=== PATIENT | female | born 1960 | race Caucasian/White ===

== ENCOUNTER 2018-07-14 06:44 | Outpatient (CLI) | payer OTHER ==
[~2018-07-14] VITALS: Ht 165.1 cm; Wt 131.8 kg
--- NOTE | ~2018-07-14 | HEMODYNAMI ---
PATIENT:TAIWO MAHMOOD MEDICAL RECORD: [id number] : 56 LOCATION:[facility] ADMISSION DATE: 07/14/18 Generatedon:07/14/20189:48 Patient name: TAIWO MAHMOOD Patient #: [id number] SSN: : 1960 Date of study: 07/14/2018 Page: Of Hemodynamic Procedure Report Patient Data Patient Demographics Procedure consent was obtained First Name: TAIWO Gender: Female Last Name: ELA : 1960 Patient #: [id number] Age: 58 year(s) Race: Unknown Additional ID: [id number] Contact details [address]: [address] [place] [address] State: [place] City: [place] Zip code: [address] Past Medical History Allergies Allergen Reaction Date Comments Reported Penicillins 07/14/2018 Admission Admission Data Admission Date: 07/14/2018 Admission Time: 6:44 Height (in.): 65 BSA: 2.32 (m2) Height (cm.): 165.1 BMI: 48.42 (kg/m2) Weight (lbs.): 291 Weight (kg.): 132 Lab Results Lab Result Date: 07/14/2018 Lab Result Time: 0:00 Biochemistry Name Units Result Min Max BUN mg/dl 18 --(---*)-- 7 18 Creatinine mg/dl 0.8 --(-*--)-- 0.6 1.3 CBC Name Units Result Min Max Hemoglobin g/dl 12.7 -*(----)-- 13.5 17.5 Procedure Procedure Types Cath Procedure Diagnostic Procedure [facility] w/Coronaries Sedation Charges Moderate Sedation up to 15 minutes Procedure Description Procedure Date Procedure Date: 07/14/2018 Procedure Start Time: 9:36 Procedure End Time: 9:47 Procedure Staff Name Function Nelson Swenson RT Wrapping Machine Helper Leah Tam RT Monitor Becky Tripathi RT Scrub Turner Perez RN Nurse Holland Lauren MD Performing Physician Procedure Data Cath Procedure Fluoroscopy Diagnostic fluoroscopy Total fluoroscopy Time: 2.4 time: 2.4 min min Diagnostic fluoroscopy Total fluoroscopy dose: 757 dose: 757 mGy mGy Contrast Material Contrast Material Type Amount (ml) Isovue 300 64 Entry Location Entry Primary Successful Side Size Upsize Upsize Entry Closure Knight ccessful Closure Location (Fr) 1 (Fr) 2 (Fr) Remarks Device Remarks Radial Right 6 Fr Mechanical artery Short Compression Estimated blood loss: 5 ml Diagnostic catheters Device Type Used For End Catheter Placement DIAGNOSTIC Lee 110cm Procedure 5Fr catheter ([id number]) Procedure Complications No complications Procedure Medications Medication Administration Route Dosage 0.9% NaCl I.V. 100 ml/hr Oxygen etCO2 Nasal cannula 2 l/min Heparin Flush Bag added to field 2 bags (1000units/500ml NS) Lidocaine 2% added to field 20 Radial Cocktail added to field 1 syringe (Verapomil 2mg/Nitro 400mcg/Heparin 1500units) Versed I.V. 2 mg Fentanyl I.V. 100 mcg Versed I.V. 1 mg Versed I.V. 1 mg Radial Cocktail I.A. 1 syringe (Verapomil 2mg/Nitro 400mcg/Heparin 1500units) Hemodynamics Rest BSA: 2.32 (m2) HGB: 12.7 (g/dl) O2 Consumption: Estimated: 208.43 (ml/min) O2 Co nsumption indexed: Estimated:89.84 (ml/min/m) Heart Rate: 57 (bpm) Pressure Samples Time Site Value (mmHg) Purpose Heart Use Rate(bpm) 9:38 LV 120/12,12 Snapshot 103 Gradients Valve Time Site Site Mean SEP/DFP Peak To Heart Use 1 2 (mmHg) (sec/min) Peak Rate (mmHg) (bpm) Aortic 9:39 LV AO 111 Snapshots Pre Cath Intra NCS Post Cath Vital Signs Time Heart Resp SPO2 etCO2 NIBP (mmHg) Rhythm Pain Sedation Rate (ipm) (%) (mmHg) Status Level (bpm) 9:18:24 59 15 100 38 143/78(100) NSR 0 (11) 10(A) , No pain 9:22:40 59 12 100 41 129/73(94) NSR 0 (11) 10(A) , No pain 9:26:54 62 22 100 29.1 133/74(94) NSR 0 (11) 10(A) , No pain 9:32:03 58 11 100 11.2 133/78(108) NSR 0 (11) 10(A) , No pain 9:36:21 61 12 100 37.3 135/76(96) NSR 0 (11) 10(A) , No pain 9:40:41 76 12 95 36.5 125/73(99) NSR 0 (11) 9(A) , No pain 9:44:53 77 18 96 40.3 134/73(93) NSR 0 (11) 10(A) , No pain Medications Time Medication Route Dose Verified Delivered Reason Notes Effectiveness by by 9:17:26 0.9% NaCl I.V. 100 Turner Turner Per ml/hr Chris Perez physician RN RN 9:17:35 Oxygen etCO2 2 l/min Turner Turner Per Nasal Chris Perez physician cannula RN RN 9:17:49 Heparin Flush added 2 bags Turner Turner used for Bag to Chris Perez procedure (1000units/500ml RN RN NS) 9:18:04 Lidocaine 2% added 20ml Turner Turner for local to vial Lorigan Chris anesthetic field SANTIZO RN 9:18:14 Radial Cocktail added 1 Turner Turner used for (Verapomil to syringe Chris Perez procedure 2mg/Nitro field SANTIZO RN 400mcg/Heparin 1500units) 9:25:54 Versed I.V. 2 mg Turner Turner for sedation Chris Perez RN RN 9:26:03 Fentanyl I.V. 100 mcg Turner Turner for sedation Chris Perez RN RN 9:34:37 Versed I.V. 1 mg Turner Turner for sedation Chris Perez RN RN 9:36:09 Versed I.V. 1 mg Turner Turner for sedation Chris Perez RN RN 9:37:43 Radial Cocktail I.A. 1 Turenr Holland for (Verapomil syringe Chris schmidt 2mg/An SANTIZO 400mcg/Heparin 1500units) Procedure Log Time Note 8:51:14 Patient Height : 65 inches 8:51:19 Patient Weight : 291 lbs 8:55:33 Signed procedure consent form obtained from patient. 8:55:34 Diagnostic Cath status Elective 8:55:36 Time tracking: Regular hours (M-F 7:00 - 5:00) 8:55:41 Plan of Care:Hemodynamics will remain stable., Cardiac rhythm will remain stable., Comfort level will be maintained., Respiratory function will remain adequate., Patient/ family verbilizes understanding of procedure., Procedure tolerated without complication., Recovers from procedure without complications.. 8:55:48 Patient allergic to Penicillins 9:02:02 Nelson Swenson RT(R) sent for patient. Start room use. 9:06:42 Patient received from Pre/Post Procedure Room to CCL 2 Alert and oriented. Tansferred to table in Supine position. 9:06:43 Warm blankets applied, and linus hugger turned on for patient comfort. 9:06:43 Correct patient and procedure confirmed by team. 9:06:44 ECG and BP/O2 sat monitors applied to patient. 9:17:16 Vital chart was started 9:17:17 Baseline sample Acquired. 9:17:20 Rhythm: sinus bradycardia 9:17:22 Full Disclosure recording started 9:17:26 0.9% NaCl 100 ml/hr I.V. was administered by Turner Perez RN; Per physician; 9:17:31 H&P Date Dictated: 07/08/2018 Within 30 days and on chart., H&P Addendum completed by physician on day of procedure. (MUST COMPLETE FOR ALL OUTPATIENTS). 9:17:31 Pre-procedure instructions explained to patient. 9:17:32 Pre-op teaching completed and patient verbalized understanding. 9:17:33 Family in patients room. 9:17:35 Oxygen 2 l/min etCO2 Nasal cannula was administered by Turner Perez RN; Per physician; 9:17:36 Patient NPO since Midnight. 9:17:38 Is patient on blood thinner?No 9:17:40 Patient diabetic? No. 9:17:49 Heparin Flush Bag (1000units/500ml NS) 2 bags added to field was administered by Turner Perez RN; used for procedure; 9:18:04 Lidocaine 2% 20ml vial added to field was administered by Turner Perez RN; for local anesthetic; 9:18:14 Radial Cocktail (Verapomil 2mg/Nitro 400mcg/Heparin 1500units) 1 syringe added to field was administered by Turner Perez RN; used for procedure; 9:18:18 Previous problem with sedation/anesthesia? No ? 9:18:20 Snore? Yes 9:18:21 Sleep apnea? Yes 9:18:23 Deviated septum? No 9:18:25 Opens mouth fully? Yes 9:18:27 Sticks out tongue? Yes 9:18:29 Airway obstruction? No ? 9:18:37 Dentures? No ? 9:18:39 Pre procedure: right dorsailis pedis pulse 2+ Normal; easily identifiable; not easily obliterated 9:18:44 Modified Lasha's test Ulnar < 7 seconds 9:18:47 Patient pain scale 0/10 ?. 9:19:07 IV patent on arrival in left hand with 0.9% NaCl at 10ml/hr. 9:21:02 Lab Result : BUN 18 mg/dl 9:21:02 Lab Result : Creatinine 0.8 mg/dl 9:21:02 Lab Result : Hemoglobin 12.7 g/dl 9:21:05 Lab results completed and on chart. 9:21:27 Alarms reviewed by R. N. 9:21:27 Sharps counted by scrub and verified by R.N. 9:21:33 Use device set Radial Dx or PCI 9:21:34 ACIST Syringe ([id number]) opened to sterile field. 9:21:35 Bag Decanter (2002S) opened to sterile field. 9:21:36 ACIST Hand Control (18468) opened to sterile field. 9:21:37 ACIST Manifold (03062) opened to sterile field. 9:21:41 Tegaderm 4 x 4 (1626W) opened to sterile field. 9:21:44 Medline Cath Pack ([id number]) opened to sterile field. 9:21:45 DIAGNOSTIC WIRE .035 260cm J wire (666395) opened to sterile field. 9:21:46 MBrace Wrist Support ([id number]) opened to sterile field. 9:21:47 NEEDLE Cook 21G 4cm Radial ([id number]) opened to sterile field. 9:21:48 SHEATH 6FR Slender (18-7497) opened to sterile field. 9:25:29 --------ALL STOP TIME OUT------ 9:25:30 Final Timeout: patient, procedure, and site verified with staff and physician. All members of the team are in agreement. 9:25:33 Right Radial & Right Groin site verified by team. 9:25:37 Physical assessment completed. ASA score P 2 - A patient with mild systemic disease as per Holland Lauren MD. 9:25:41 Sedation plan: IV Moderate Sedation Medication:Versed, Fentanyl 9::54 Versed 2 mg I.V. was administered by Turner Perez RN; for sedation; 9:26:03 Fentanyl 100 mcg I.V. was administered by Turner Perez RN; for sedation; 9:32:10 Zero performed for pressure channel P1 9:34:37 Versed 1 mg I.V. was administered by Turner Perez RN; for sedation; :35:26 Procedure started. 9:36:09 Versed 1 mg I.V. was administered by Turner Perez RN; for sedation; 9:36:59 Local anesthetic to right radial artery with Lidocaine 2% by Holland Lauren MD.INITIAL ACCESS ONLY 9:37:12 A 6 Fr Short sheath was inserted into the Right Radial artery 9:37:35 A DIAGNOSTIC Lee 110cm 5Fr catheter ([id number]) was advanced over the wire and used for Procedure. 9:37:43 Radial Cocktail (Verapomil 2mg/Nitro 400mcg/Heparin 1500units) 1 syringe I.A. was administered by Holland Lauren MD; for vasodilation; 9:37:59 LV gram done using LARIOS 9:38:59 Injector settings: Ml/sec: 51, Volume: 5, 9:39:00 LV hemodynamics recorded. 9:39:17 EF : 50 % 9:40:48 LCA angiography performed. 9:41:57 RCA angiography performed. 9:42:54 Catheter removed. 9:43:22 Procedure ended.(Physican Out) 9:43:44 TR BAND Standard ([id number]) opened to sterile field. 9:44:31 Sheath removed intact; hemostasis achieved with Mechanical Compression to the Right Radial artery. 9:44:39 Fluoroscopy time 02.40 minutes. 9:44:43 Fluoroscopy dose: 757 mGy 9:44:43 Flurop Dose total: 757 9:44:47 Contrast amount:Isovue 300 64ml. 9:45:42 Sharps counted by scrub and verified by R.N. 9:45:45 TR band inflated with 10cc of air. 9:46:06 Post-procedure physical assessment completed. ASA score P 2 - A patient with mild systemic disease as per Holland Lauren MD. 9:46:09 Post procedure rhythm: sinus rhythm 9:46:15 Estimated blood loss: 5 ml 9:46:16 Post procedure instruction explained to patient.Patient verbalizes understanding. 9:46:17 Patient needs reinforcement of post procedure teaching. 9:46:46 Procedure type changed to Cath procedure, Diagnostic procedure, LHC, LHC w/Coronaries, Sedation Charges, Moderate Sedation up to 15 minutes 9:47:13 Procedure and supply charges have been captured, reviewed, submitted and are correct. 9:47:16 Procedure Complication : No complications 9:47:18 Vital chart was stopped 9:47:18 See physician's report for complete and final results. 9:47:20 Report given to Pre/Post Procedure Room. 9:47:23 Patient transfered to Pre/Post Procedure Room with Bed. 9:47:29 Procedure ended. 9:47:29 Full Disclosure recording stopped 9:47:34 End room use (Document Last) Device Usage Item Name Manufacture Quantity Catalog Hospital Part Current Minimal Lot# / Number Charge Number Stock Stock Serial# Code ACIST Acist 1 02975 432417 808066 385768 20 Syringe Medical (46516) Systems Inc Bag Microtek 1 2001S 292833 66753 983324 5 Decanter Medical Inc. () ACIST Hand Acist 1 04167 878359 519391 549854 5 Control Medical (38253) Systems Inc ACIST Acist 1 20633 184607 506207 674405 5 Manifold Medical (43831) Systems Inc Tegaderm 4 3M 1 1626W 870275 522441 973010 5 x 4 (1626W) Medline Medline 1 [id number] 048393 24111 435118 5 Cath Pack ([id number]) DIAGNOSTIC St Ang 1 285110 138888 637234 276374 30 WIRE .035 260cm J wire (823645) MBrace Advanced 1 140-0250-00 608982 75894 065085 5 Wrist Vascular Support Dynamics ([id number]) NEEDLE [employer] 1 B70981 596560 500798 964858 5 21G 4cm Radial (C24717) SHEATH 6FR Terumo 1 [id number] 285338 956468 590500 5 Slender (801060) DIAGNOSTIC Terumo 1 40-8305 782093 131231 100087 5 Lee 110cm 5Fr catheter (723561) TR BAND Terumo 1 [id number] 998046 840350 431367 40 Standard ([id number]) Signature Audit [place] Stage Time Signature Unsigned Intra-Procedure 07/14/2018 Leah Tam 9:48:46 AM RT(R) Signatures Monitor : Leah Tam Signature : RT Date : Time : [address] [place] [address]
[~2018-07-14 06:44] MED LIST: DYAZIDE 37.5/251 CAP PO; PRAVACHOL40 MG PO
[2018-07-14] MEDS ORDERED: FUROSEMIDE20 MG PO (07:29)
[2018-07-14] MEDS ORDERED: K-TAB10 MEQ PO (07:29)
[2018-07-14] MEDS ORDERED: VITAMIN D250000 UNIT PO (07:30)
[2018-07-14] MEDS ORDERED: HYDROCHLOROTH12.5 M1 PO (07:31)
[2018-07-14] MEDS ORDERED: LOSARTAN-HCTZ1 EAC2 PO (07:31)
[2018-07-14] MEDS ORDERED: BAYER CHEWABLE81 MG PO (07:32)
[2018-07-14] MEDS ORDERED: MERIBIN5 MG PO (07:33)
[2018-07-14 07:50] VITALS: BP 162/69; Ht 165.1 cm; Wt 131.8 kg
[2018-07-14 08:02] LABS: BASOPHILS 0.7 % (0-2); EOSINOPHILS 4.5 % (0-7); HEMATOCRIT 39.2 % (36.0-48.0); HEMOGLOBIN 12.7 g/dL (12-16); IMMATURE GRANULOCYTES 0.5 % (0-5); LYMPHOCYTES 33.6 % (15-50); MCH 28.7 pg (26.0-34.0); MCHC 32.4 g/dL (31.0-37.0); MCV 88.5 fL (80.0-100.0); MONOCYTES 7.8 % (2-11); NEUTROPHILS 52.9 % (40-80); PLATELET COUNT 209 10x3/uL (130-400); RBC 4.43 10x6/uL (4.00-5.40); RDW 14.2 % (11.5-14.5); WBC 5.8 10x3/uL (4.8-10.8)
[2018-07-14 08:13] LABS: CALC OSMOLALITY 282 mosm/kg (275-300); CALCIUM 8.3 mg/dL (8.5-10.1); CARBON DIOXIDE 26.5 mmol/L (21.0-32.0); CHLORIDE - SERUM 105 mmol/L (98-107); CREATININE - SERUM 0.8 mg/dL (0.6-1.3); GLUCOSE 103 mg/dL (74-106); POTASSIUM - SERUM 3.7 mmol/L (3.5-5.1); SODIUM 141 mmol/L (136-145); UREA NITROGEN 18 mg/dL (7-18); eGFR NON AFRICAN AMERICAN 77 mL/min (90-120)
== END 2018-07-14 12:48 | disposition home or self-care (01) ==
LOC: D.CATH 06:44
PROVIDERS: Internal Medicine Cardiovascular Disease
DX: R07.89 Other chest pain (principal); Z01.812 Encounter for preprocedural laboratory examination